=== PATIENT | male | born 1940 | race Caucasian/White ===

== ENCOUNTER 2016-11-25 11:15 | Inpatient (IN) | payer OTHER ==
[~2016-11-25] VITALS: Ht 172.7 cm; Wt 94.0 kg
[~2016-11-25 11:15] MED LIST: ATOR40TA PO; B-12500T3 PO; CETI10 PO; CODE30TA2 PO; COLA100C PO; GLIP5 PO; LISI-363 PO; METO50TA PO; NORV10TA PO; PANT40IN3 PO; ST JTAB PO; TRAZ50TA4 PO
[2016-11-25 11:17] VITALS: BP 159/78; PULSE 86; RESP 24; TEMP 97.3; O2SAT 97
--- NOTE | 2016-11-25 11:21 | PD ---
Physical Exam Date Seen by Provider: November 25, 2016 Time Seen by Provider: 11:20 Narrative 75 year old male presents to the emergency department for evaluation of worsening shortness of breath over the past 2 months. He reports history of bypass. No known fevers. Patient states he has a pulmonary test ordered, but is unsure what test. Patient reports chest pain with coughing. Vital signs reviewed. Patient seen in triage, awaiting bed placement. Data Data Last Documented VS Vital Signs Date Time Temp Pulse Resp B/P Pulse Ox O2 Delivery O2 Flow Rate FiO2 11/25/16 11:17 97.3 86 24 159/78 97 Room Air [facility] [place] Supervised Visit with YUE: Oksana Kennedy November 25, 2016 11:21
[2016-11-25] MEDS ORDERED: SODIUM CHLORIDE 0.9% FLUSH 10 ML FLUSH IVF PRN (11:30)
[2016-11-25 11:49] VITALS: BP 135/82; PULSE 79; RESP 18; O2SAT 94
[2016-11-25 12:03] LABS: AUTOMATED NEUTROPHIL # 4.2 TH/MM3 (1.8-7.7); BASOPHIL % 0.9 % (0.0-2.0); EOSINOPHIL % 0.8 % (0.0-4.0); HEMATOCRIT 47.4 % (39.0-51.0); HEMO FLAGS DIFF FINAL; LYMPH % 11.3 % (9.0-44.0); LYMPHOCYTE # 0.6 TH/MM3 (1.0-4.8); MEAN CELL VOLUME 87.1 FL (80.0-100.0); MEAN CORPUSCULAR HEMOGLOBIN 29.3 PG (27.0-34.0); MEAN CORPUSCULAR HGB CONC 33.7 % (32.0-36.0); MONO % 10.8 % (0.0-8.0); NEUT % 76.2 % (16.0-70.0); PLATELET COUNT 177 TH/MM3 (150-450); RED BLOOD COUNT 5.44 MIL/MM3 (4.50-5.90); RED CELL DISTRIBUTION WIDTH 14.3 % (11.6-17.2); WHITE BLOOD COUNT 5.5 TH/MM3 (4.0-11.0)
[2016-11-25 12:05] LABS: APTT (PATIENT) 29.6 SEC (24.3-30.1)
--- NOTE | 2016-11-25 12:06 | RADRPT ---
EXAM DATE/TIME: 11/25/2016 11:38 [place] COMPARISON: No previous studies available for comparison. INDICATIONS : Cough and Shortness of Breath MEDICAL HISTORY : Chronic obstructive pulmonary disease. Cardiovascular disease. SURGICAL HISTORY : CABG. ENCOUNTER: Initial ACUITY: 3 days PAIN SCORE: 0/10 LOCATION: Bilateral chest FINDINGS: PA and lateral views of the chest demonstrate the lungs to be symmetrically aerated without evidence of mass, infiltrate or effusion. The cardiomediastinal contours are unremarkable. Osseous structure s are intact. The patient is status post median sternotomy for bypass grafting procedure. Mild athero sclerotic calcifications are present in the aorta. There is mild scarring and/or atelectasis at the l junior bases. CONCLUSION: Mild scarring and/or atelectasis at the lung bases. There is no evidence of pneumonia . Wilton Huerta MD on November 25, 2016 at 12:04 Board Certified Radiologist. This report was verified electronically.
[2016-11-25] MEDS ORDERED: LISI40TA PO (12:11)
[2016-11-25] MEDS ORDERED: ASPI1TAB69 PO (12:11)
[2016-11-25] MEDS ORDERED: D 101000 (12:11)
[2016-11-25] MEDS ORDERED: DOCU100C PO (12:11)
[2016-11-25] MEDS ORDERED: ATOR40TA16 PO (12:11)
[2016-11-25] MEDS ORDERED: GLIP5TAB8 PO (12:11)
[2016-11-25] MEDS ORDERED: [UNRECOGNIZED DRUG - CODE] (12:11)
[2016-11-25] MEDS ORDERED: DIAZ5TAB PO (12:11)
[2016-11-25] MEDS ORDERED: AMLO10TA2 PO (12:11)
[2016-11-25] MEDS ORDERED: VIAG100T PO (12:11)
[2016-11-25] MEDS ORDERED: CYAN100025 SL (12:11)
[2016-11-25 12:12] LABS: ANION GAP 9 MEQ/L (5-15); BICARBONATE 27.6 MEQ/L (21.0-32.0); BLOOD UREA NITROGEN 15 MG/DL (7-18); CHLORIDE 100 MEQ/L (98-107); GLOMERULAR FILTRATION RATE 52 ML/MIN (>89); MAGNESIUM 2.1 MG/DL (1.5-2.5); SODIUM (NA) 137 MEQ/L (136-145)
[2016-11-25 12:15] LABS: CREATINE KINASE 102 U/L (39-308)
[2016-11-25 12:27] LABS: CKMB 1.2 NG/ML (0.5-3.6)
[2016-11-25] MEDS ORDERED: ASPIRIN 81 MG CHEW TAB CHEW ONE (12:45)
--- NOTE | 2016-11-25 13:02 | PD ---
HPI Chief Complaint: Respiratory Symptoms Time Seen by Provider: 11:49 Travel History International Travel<30 days: No Contact w/Intl Traveler<30days: No Traveled to known affect area: No History of Present Illness HPI Patient 75-year-old male presents with acute on chronic shortness of breath. Patient states his been short of breath for approximately a month but got fairly worse over the past 4 days. He doesn't endorse a nonproductive cough. He states as though he feels like his lungs are filling up with fluid but states this never happened to him before. Denies any chest pain but states he does have a strange sensation in his chest from time to time. Cannot determine any alleviating or exacerbating factors. He states his symptoms become more severe. Denies any fever. PFSH Past Medical History Arthritis: No Asthma: No Atrial Fibrillation: Yes Autoimmune Disease: No Blood Disorders: No Anxiety: Yes Depression: No Heart Rhythm Problems: Yes Cancer: No Cardiac Catheterization: Yes Cardiovascular Problems: Yes (COSTOCHONDRITIS) High Cholesterol: Yes Chemotherapy: No Chest Pain: Yes Congestive Heart Failure: No COPD: Yes Coronary Artery Disease: Yes Diabetes: Yes Patient Takes Glucophage: No Diminished Hearing: No Diverticulitis: Yes (DIVERTICULOSIS) Endocrine: No Gastrointestinal Disorders: No GERD: Yes Glaucoma: No Genitourinary: Yes (INSUFF RENAL OUTPUT, BPH, CKD STAGE II) Headaches: Yes Hepatitis: No Hiatal Hernia: No Hypertension: Yes Immune Disorder: No Kidney Stones: No Musculoskeletal: No Neurologic: Yes Psychiatric: No Reproductive: No Respiratory: Yes Migraines: No Myocardial Infarction: Yes Radiation Therapy: No Renal Failure: No Seizures: No Sickle Cell Disease: No Sleep Apnea: No Thyroid Disease: No Ulcer: No Past Surgical History Abdominal Surgery: No AICD: No Appendectomy: No Arteriovenous Shunt: No Cardiac Surgery: Yes (CABG) Cholecystectomy: No Coronary Artery Bypass Graft: Yes (TRIPLE) Ear Surgery: No Endocrine Surgery: No Eye Surgery: No Genitourinary Surgery: No Gynecologic Surgery: No Insulin Pump: No Joint Replacement: No Neurologic Surgery: No Oral Surgery: No Pacemaker: No Thoracic Surgery: No Other Surgery: Yes Social History Alcohol Use: No Tobacco Use: No Substance Use: No Allergies-Medications (Allergen,Severity, Reaction): Coded Allergies: Latex (Verified Allergy, Severe, Itching, 11/25/16) Reported Meds & Prescriptions Reported Meds & Active Scripts Active Reported Lisinopril 40 Mg Tab 40 Mg PO DAILY B-12 (Cyanocobalamin) 1,000 Mcg Subl 1,000 Mcg SL DAILY Aspirin 81 Mg Tabdr 81 Mg PO DAILY Viagra (Sildenafil Citrate) 100 Mg Tab 100 Mg PO DAILY PRN Glipizide 5 Mg Tab 5 Mg PO BIDAC Take 30 minutes before a meal Docusate Sodium 100 Mg Cap 2,100 Mg PO BID Diazepam 5 Mg Tab 5 Mg PO HS PRN D 1000 (Cholecalciferol) 1,000 Unit Cap Cvs Anti-Itch 0.5-0.5 % (Camphor & Menthol) 1 Lot Lot Atorvastatin (Atorvastatin Calcium) 40 Mg Tab 40 Mg PO HS Amlodipine (Amlodipine Besylate) 10 Mg Tab 10 Mg PO DAILY Review of Systems Except as stated in HPI: all other systems reviewed are Neg Physical Exam Narrative GENERAL: Well-developed well-nourished no apparent distress SKIN: Focused skin assessment warm/dry. HEAD: Atraumatic. Normocephalic. EYES: Pupils equal and round. No scleral icterus. No injection or drainage. ENT: No nasal bleeding or discharge. Mucous membranes pink and moist. NECK: Trachea midline. No JVD. CARDIOVASCULAR: Regular rate and rhythm. No murmur appreciated. RESPIRATORY: No accessory muscle use. Clear to auscultation. Very fine rales heard in the right base greater than the left base. GASTROINTESTINAL: Abdomen soft, non-tender, nondistended. Hepatic and splenic margins not palpable. MUSCULOSKELETAL: No obvious deformities. No clubbing. No cyanosis. No edema. NEUROLOGICAL: Awake and alert. No obvious cranial nerve deficits. Motor grossly within normal limits. Normal speech. PSYCHIATRIC: Appropriate mood and affect; insight and judgment normal. Data Data Last Documented VS Vital Signs Date Time Temp Pulse Resp B/P Pulse Ox O2 Delivery O2 Flow Rate FiO2 11/25/16 11:49 79 18 135/82 94 Room Air 11/25/16 11:17 97.3 Orders Complete Blood Count With Diff (11/25/16 11:22) Basic Metabolic Panel (Bmp) (11/25/16 11:22) B-Type Natriuretic Peptide (11/25/16 11:22) Act Partial Throm Time (Ptt) (11/25/16 11:22) Prothrombin Time / Inr (Pt) (11/25/16 11:22) Magnesium (Mg) (11/25/16 11:22) Ckmb (Isoenzyme) Profile (11/25/16 11:22) Troponin I (11/25/16 11:22) Iv Access Insert/Monitor (11/25/16 11:22) Electrocardiogram (11/25/16 11:22) Ecg Monitoring (11/25/16 11:22) Oximetry (11/25/16 11:22) Oxygen Administration (11/25/16 11:22) Chest, Pa & Lat (11/25/16 11:22) Sodium Chloride 0.9% Flush (Ns Flush) (11/25/16 11:30) CKMB (11/25/16 11:35) CKMB% (11/25/16 11:35) Aspirin Chew (Aspirin Chew) (11/25/16 12:45) Admit Order (Ed Use Only) (11/25/16 ) Labs Laboratory Tests Test 11/25/16 11:35 White Blood Count 5.5 TH/MM3 Red Blood Count 5.44 MIL/MM3 Hemoglobin 16.0 GM/DL Hematocrit 47.4 % Mean Corpuscular Volume 87.1 FL Mean Corpuscular Hemoglobin 29.3 PG Mean Corpuscular Hemoglobin 33.7 % Concent Red Cell Distribution Width 14.3 % Platelet Count 177 TH/MM3 Mean Platelet Volume 8.2 FL Neutrophils (%) (Auto) 76.2 % Lymphocytes (%) (Auto) 11.3 % Monocytes (%) (Auto) 10.8 % Eosinophils (%) (Auto) 0.8 % Basophils (%) (Auto) 0.9 % Neutrophils # (Auto) 4.2 TH/MM3 Lymphocytes # (Auto) 0.6 TH/MM3 Monocytes # (Auto) 0.6 TH/MM3 Eosinophils # (Auto) 0.0 TH/MM3 Basophils # (Auto) 0.0 TH/MM3 CBC Comment DIFF FINAL Differential Comment Prothrombin Time 11.0 SEC Prothromb Time International 1.0 RATIO Ratio Activated Partial 29.6 SEC Thromboplast Time Sodium Level 137 MEQ/L Potassium Level 4.0 MEQ/L Chloride Level 100 MEQ/L Carbon Dioxide Level 27.6 MEQ/L Anion Gap 9 MEQ/L Blood Urea Nitrogen 15 MG/DL Creatinine 1.34 MG/DL Estimat Glomerular Filtration 52 ML/MIN Rate Random Glucose 184 MG/DL Calcium Level 9.1 MG/DL Magnesium Level 2.1 MG/DL Total Creatine Kinase 102 U/L Creatine Kinase MB 1.2 NG/ML Troponin I 0.07 NG/ML B-Type Natriuretic Peptide 61 PG/ML MDM Medical Decision Making Medical Screen Exam Complete: Yes Emergency Medical Condition: Yes Interpretation(s) EKG shows atrial fibrillation, normal axis normal R-wave progression. No concerning ST T changes. Abnormal EKG. Differential Diagnosis ACS, AMI, CHF, atrial fibrillation. Narrative Course Patient was roomed in the emergency department, his complaint of fluid on the lungs is the chief complaint. Chest x-ray does not show any pulmonary edema or pleural effusion. He appears in no obvious short of breath with some mild URI symptoms. He had very vague chest discomfort symptoms. His troponin is elevated to 0.07 and a critical value. He was given aspirin. No true indication for heparinization at this time. Patient appears comfortable. Vital signs are within normal limits. Discussed with the residents on-call for admission to Dr. Otero and they're agreeable. Patient's results were discussed with him and he also agrees with admission. Diagnosis Primary Impression: Elevated troponin Additional Impression: Chronic atrial fibrillation Admitting Information Admitting Physician Requests: Observation Condition: Stable Devyn Alvarez MD November 25, 2016 13:02
--- NOTE | 2016-11-25 13:03 | HHI.HP ---
[facility] Service Family Medicine Primary Care Physician [facility] Admission Diagnosis Diagnoses: International Travel<30 Days: No Contact w/Intl Traveler<30days: No Known Affected Area: No History of Present Illness 75-year-old male with history of chronic atrial fibrillation which he chooses not to undergo anticoagulation. Also likely history of COPD. Over the last 2- 3 months patient states he has been becoming more short of breath. Patient describes this as "heavy breathing". However, over the last 2-3 days he has been having an increasing hacking cough which she cannot seem to get rid of. He states at the [facility], I have arranged a pulmonary visit and he is planning to undergo PFTs. However he has not had that workup as of yet. He denies fever or chills. He states his cough is worse when moving around. He does lay flat on his stomach to sleep at night. He has tried an inhaler from the [facility] without any symptom relief. He also has been having chest pain. This chest pain has been ongoing since his CABG in 2005. It is in the middle of his chest, 2 out of 10, dull. He is unable to describe how long it lasts. No radiation. Patient did go to the [facility] today to swim. He has been swimming 3 days a week and continues that regimen. He swim for 35 minutes this morning. He states, he likely had made his mind up to come to the ER prior to swimming. However, after swimming he realized he was more short of breath than before and decided to come in. He does have a history of atrial fibrillation. He has considered anticoagulation with Coumadin in the past and does not want to be on Coumadin. However, he may be interested in other anticoagulation options. These have not been discussed with him at [facility]. Review of Systems Constitutional: DENIES: Fever, Chills Eyes: DENIES: Blurred vision, Diplopia Respiratory: COMPLAINS OF: Cough, Shortness of breath, DENIES: Sputum production Cardiovascular: COMPLAINS OF: Chest pain, DENIES: Syncope Gastrointestinal: DENIES: Black stools, Bloody stools, Constipation, Diarrhea, Nausea, Vomiting Neurologic: DENIES: Abnormal gait, Headache Psychiatric: DENIES: Anxiety, Confusion Past Family Social History Past Medical History AFib CAD s/p Bypass Graft 2006 Hyperlipidemia Diabetes II?- 1/2 glipizide in morning, and half in evening HTN GERD Past Surgical History CABG 2005 Reported Medications Reported Meds & Active Scripts Active Reported D 1000 (Cholecalciferol) 1,000 Unit Cap Cvs Anti-Itch 0.5-0.5 % (Camphor & Menthol) 1 Lot Lot Atorvastatin (Atorvastatin Calcium) 40 Mg Tab 40 Mg PO HS Amlodipine (Amlodipine Besylate) 10 Mg Tab 10 Mg PO DAILY Allergies: Coded Allergies: Latex (Verified Allergy, Severe, Itching, 11/25/16) Active Ordered Medications Active Medications Acetaminophen (Tylenol) 650 mg Q4H PRN PO; Start 11/25/16 at 13:45 Amlodipine Besylate (Norvasc) 10 mg DAILY PO; Start 11/26/16 at 09:00; Status UNV Aspirin (Aspirin Chew) 324 mg ONCE ONCE CHEW; Start 11/25/16 at 12:45; Stop 11/25 at 12:46; Status DC Aspirin (Ecotrin Ec) 81 mg DAILY PO; Start 11/26/16 at 09:00; Status UNV Atorvastatin Calcium (Lipitor) 40 mg HS PO; Start 11/25/16 at 21:00; Status UNV Azithromycin (Zithromax) 500 mg Q24H PO; Start 11/25/16 at 13:45; Stop 11/30/16 at 13:44; Status UNV Diazepam (Valium) 5 mg HS PRN PO; Start 11/25/16 at 13:45; Status UNV Docusate Sodium (Colace) 2,100 mg BID PO; Start 11/25/16 at 21:00; Status UNV Heparin Sodium (Porcine) (Heparin Inj) 5,000 units Q12H SQ; Start 11/25/16 at 13: 45; Status UNV Lorazepam (Ativan) 1 mg ONCE ONCE PO; Start 11/25/16 at 13:30; Stop 11/25/16 at 13:31; Status DC Magnesium Hydroxide (Milk Of Magnesia Liq) 30 ml Q12H PRN PO; Start 11/25/16 at 13:45 Naloxone HCl (Narcan Inj) 0.4 mg UNSCH PRN IV; Start 11/25/16 at 13:45 Non-Formulary Medication 40 mg DAILY PO; Start 11/26/16 at 09:00; Status UNV Ondansetron HCl (Zofran Inj) 4 mg Q6H PRN IVP; Start 11/25/16 at 13:45 Prednisone (Deltasone) 40 mg DAILY PO; Start 11/25/16 at 13:45; Status UNV Sodium Chloride (NS Flush) 2 ml BID IV FLUSH; Start 11/25/16 at 21:00 Sodium Chloride (NS Flush) 2 ml UNSCH PRN IV FLUSH; Start 11/25/16 at 13:45 Sodium Chloride (NS Flush) 2 ml UNSCH PRN IVF Last administered on 11/25/16t 12: 11; Admin Dose 2 ML; Start 11/25/16 at 11:30 Family History Mother - liver cancer Father - , unknown medical conditions. Social History Lives alone. Retired ETOH: very rarely Tobacco: Started in high school; smoked until 2005; 1 ppd Drugs: Denies Physical Exam Vital Signs Vital Signs Date Time Temp Pulse Resp B/P Pulse Ox O2 Delivery O2 Flow Rate FiO2 11/25/16 11:49 79 18 135/82 94 Room Air 11/25/16 11:49 97 Room Air 11/25/16 11:49 97 Room Air 11/25/16 11:17 97.3 86 24 159/78 97 Room Air Physical Exam GENERAL: This is a well-nourished, well-developed patient, in no apparent distress. Sitting upright in bed. SKIN: No rashes, ecchymoses or lesions. Cool and dry. HEAD: Atraumatic. Normocephalic. No temporal or scalp tenderness. EYES: Pupils equal round and reactive. Extraocular motions intact. No scleral icterus. No injection or drainage. ENT: Nose without bleeding, purulent drainage or septal hematoma. Throat without erythema, tonsillar hypertrophy or exudate. Uvula midline. Airway patent. NECK: Trachea midline. No JVD or lymphadenopathy. Supple, nontender, no meningeal signs. CARDIOVASCULAR: Irregular rate and rhythm without murmurs, gallops, or rubs. RESPIRATORY: Bilateral coarse breath sounds, worse at the bases and on the left side. GASTROINTESTINAL: Abdomen soft, non-tender, nondistended. No hepato-splenomegaly , or palpable masses. No guarding. MUSCULOSKELETAL: Extremities without clubbing, cyanosis, or edema. No joint tenderness, effusion, or edema noted. No calf tenderness. Negative Homans sign bilaterally. NEUROLOGICAL: Awake and alert. Cranial nerves II through XII intact. Motor and sensory grossly within normal limits. Five out of 5 muscle strength in all muscle groups. Normal speech. Laboratory Laboratory Tests Test 11/25/16 11:35 White Blood Count 5.5 Red Blood Count 5.44 Hemoglobin 16.0 Hematocrit 47.4 Mean Corpuscular Volume 87.1 Mean Corpuscular Hemoglobin 29.3 Mean Corpuscular Hemoglobin 33.7 Concent Red Cell Distribution Width 14.3 Platelet Count 177 Mean Platelet Volume 8.2 Neutrophils (%) (Auto) 76.2 Lymphocytes (%) (Auto) 11.3 Monocytes (%) (Auto) 10.8 Eosinophils (%) (Auto) 0.8 Basophils (%) (Auto) 0.9 Neutrophils # (Auto) 4.2 Lymphocytes # (Auto) 0.6 Monocytes # (Auto) 0.6 Eosinophils # (Auto) 0.0 Basophils # (Auto) 0.0 CBC Comment DIFF FINAL Differential Comment Prothrombin Time 11.0 Prothromb Time International 1.0 Ratio Activated Partial 29.6 Thromboplast Time Sodium Level 137 Potassium Level 4.0 Chloride Level 100 Carbon Dioxide Level 27.6 Anion Gap 9 Blood Urea Nitrogen 15 Creatinine 1.34 Estimat Glomerular Filtration 52 Rate Random Glucose 184 Calcium Level 9.1 Magnesium Level 2.1 Total Creatine Kinase 102 Creatine Kinase MB 1.2 Troponin I 0.07 B-Type Natriuretic Peptide 61 Result Diagram: 11/25/16 1135 11/25/16 1135 Imaging Last Impressions Chest X-Ray 11/25/16 1122 Signed Impressions: Service Date/Time: Friday, November 25, 2016 11:38 - CONCLUSION: Mild scarring and/or atelectasis at the lung bases. There is no evidence of pneumonia. Wilton Huerta MD Assessment and Plan Assessment and Plan 75-year-old male, likely with a history of COPD, presents with a new cough and shortness of breath. He has a history of CABG, atrial fibrillation and chest pain and was found to have elevated troponins. Plan as below. Code Status Full Problem List: (1) COPD exacerbation Status: Acute Plan: Chest x-ray shows mild scarring and or atelectasis at the bases. Long-time history of smoking. Albuterol when necessary shortness of breath DuoNeb scheduled Prednisone 40 mg by mouth daily Azithromycin 500 mg by mouth for 5 days Oxygen as needed sats greater than 92% Incentive spirometer (2) Elevated troponin Status: Acute Plan: Troponin mildly elevated at 0.07 Cardiology consult Trend troponins every 6 hours (1800 and 0000) EKGs every 6 hours (3) Chronic atrial fibrillation Status: Acute Plan: Patient is rate controlled Has previously refused anticoagulation, but new agents have not been explained to him Cardiology consult (4) FEN/PPX Status: Acute Plan: Fluids: Tolerating By mouth Electrolytes: Monitor and replace when necessary Nutrition: Heart healthy diet Prophylaxis: Heparin 5000 units every 12 hours GI prophylaxis: Protonix while on steroids Chronic medical problems: CAD: Continue aspirin, atorvastatin Anxiety: Continue diazepam 5 mg when necessary anxiety Diabetes: Hold home glipizide. Sliding scale insulin while inpatient. Hypertension: Continue amlodipine, lisinopril Physician Certification 2 Midnight Certification Type: Admission for Inpatient Services Order for Inpatient Services The services are ordered in accordance with Medicare regulations or non- Medicare payer requirements, as applicable. In the case of services not specified as inpatient-only, they are appropriately provided as inpatient services in accordance with the 2-midnight benchmark. Estimated LOS (days): 2 days is the estimated time the patient will need to remain in the hospital, assuming treatment plan goals are met and no additional complications. Post-Hospital Plan: Home Ralph Marks MD R2 November 25, 2016 13:03
[2016-11-25] MEDS ORDERED: LORazepam 1 MG TAB PO ONE (13:30)
[2016-11-25] MEDS ORDERED: SODIUM CHLORIDE 0.9% FLUSH 10 ML FLUSH IV FLUSH PRN (13:45)
[2016-11-25] MEDS ORDERED: RESP: ALBUTEROL 2.5 MG/3 ML NEB (PRN) INH (13:45)
[2016-11-25] MEDS ORDERED: ONDANSETRON HCL 4 MG/2 ML VIAL IVP PRN (13:45)
[2016-11-25] MEDS ORDERED: MAGNESIUM HYDROXIDE SUSP 30 ML CUP PO PRN (13:45)
[2016-11-25] MEDS ORDERED: ACETAMINOPHEN 325 MG TAB PO PRN (13:45)
[2016-11-25] MEDS ORDERED: DIAZEPAM 5 MG TAB PO PRN (13:45)
[2016-11-25] MEDS ORDERED: NALOXONE HCL 0.4 MG/ML AMP IV PRN (13:45)
[2016-11-25] MEDS ORDERED: hydrALAZINE HCL 10 MG TAB PO PRN (13:45)
[2016-11-25] MEDS: HEPARIN SODIUM - SQ 10,000 UNITS/ML VIAL SQ SCH (14:10)
[2016-11-25] MEDS: predniSONE 20 MG TAB PO SCH (14:11)
[2016-11-25] MEDS: AZITHROMYCIN 250 MG TAB PO SCH (14:11)
[2016-11-25] MEDS ORDERED: DEXTROSE 50% IN WATER 50 ML VIAL(D50) IV PUSH PRN (14:15)
[2016-11-25] MEDS ORDERED: GLUCAGON 1 MG/ML VIAL OTHER PRN (14:15)
[2016-11-25] MEDS: PANTOPRAZOLE SOD 40 MG DELAYED RELEASE TAB PO SCH (15:54)
[2016-11-25 15:57] VITALS: BP 128/66; PULSE 73; RESP 20; TEMP 97.6; O2SAT 96
[2016-11-25] MEDS: RESP: ALBUTEROL 2.5 MG/IPRATROPIUM 0.5 MG NEB (SCH) INH ×2 (16:10→19:38)
[2016-11-25] MEDS: INSULIN NovoLIN REGULAR SUPPLEMENTAL SCALE SQ SCH ×2 (16:39→21:29)
--- NOTE | 2016-11-25 17:14 | MB ---
cc: SLOANE REYNOLDS M.D. DATE OF CONSULTATION: 11/25/2016 REASON FOR CONSULTATION Shortness of breath, atrial fibrillation. HISTORY OF PRESENT ILLNESS Mr. Vidal is a 75-year-old gentleman with a history of obesity, high blood pressure, hyperlipidemia, diabetes mellitus. The gentleman swims at least four times a week. He went to swim at the [facility] this morning at 7:00 a.m. His shortness of breath getting worse. He decided to come to the emergency room. He is followed by the [facility]. He has a history of coronary artery bypass grafting in 2005. The chart was reviewed. The patient was evaluated. ALLERGIES LATEX. SOCIAL HISTORY The gentleman stopped smoking in 2005. Denies drinking. FAMILY HISTORY Noncontributory to his current medical condition. MEDICATIONS 1. Amlodipine 10 mg a day. 2. Aspirin. 3. Lipitor 40 mg a day. 4. Zithromax. 5. Ativan. 6. Prednisone. REVIEW OF SYSTEMS Currently he refer some shortness of breath but no chest pain, no chest discomfort, no palpitation, no fever. PHYSICAL EXAMINATION GENERAL: Alert, fully oriented. VITAL SIGNS: His blood pressure 122/86, pulse 73, respiratory rate 20-22. LUNGS: Ventilated. Some minimal wheezing. CARDIOVASCULAR: S1, S2 irregular. ABDOMEN: Soft, obese. No mass. No bruit. EXTREMITIES: No edema. Electrocardiogram atrial fibrillation, diffuse ST changes. LABORATORY DATA Hemoglobin is 16, white blood cell 5.5, potassium 4.0, creatinine is 1.34, troponin 0.07. INR 1.0. ASSESSMENT AND RECOMMENDATIONS Mr. Vidal has possible COPD, also maybe heart failure. Ejection fraction is unknown. He has a history of TIA in 2012. Never followed with a account liaison since his bypass. He will need to be evaluated by Pulmonary. Also, he will need an echocardiogram to evaluate wall motion and valvular function. If stable before discharge, nuclear stress study will be requested. He has atrial fibrillation, his heart rate is controlled, he has a history of TIA, CABG. His CHADS-VASc is around 6. The gentleman is very high risk for ischemic stroke. I had a long conversation with him. He says he knows about the stroke, he refused to take anticoagulation because he feels like he is older. I explained to him it is patients like him that need anticoagulation. He will think about it and will make a decision tomorrow during the visit. Blood pressure is adequate. For now he will continue on current medication. Pulmonary evaluation is necessary also. MD IVA Peterson/BJF /4:37 PM /4:47 PM
[2016-11-25 19:57] VITALS: BP 139/73; PULSE 91; RESP 19; TEMP 98.2; O2SAT 94
[2016-11-25 20:00] VITALS: PULSE 93
[2016-11-25] MEDS: DOCUSATE SODIUM 100 MG CAP PO SCH (21:26)
[2016-11-25] MEDS: SODIUM CHLORIDE 0.9% FLUSH 10 ML FLUSH IV FLUSH SCH (21:26)
[2016-11-25] MEDS: ATORVASTATIN 40 MG TAB PO SCH (21:26)
--- NOTE | 2016-11-25 21:36 | EKG ---
Date Performed: 11/25/2016 Time Performed: 18:07:33 PTAGE: 75 years EKG: ATRIAL FIBRILLATION ABNORMAL RHYTHM ECG PREVIOUS TRACING : 11/25/2016 11.29 DOCTOR: Jessica Arauz Interpretating Date/Time 11/25/2016 21:35:22
--- NOTE | 2016-11-25 21:51 | EKG ---
Date Performed: 11/25/2016 Time Performed: 11:29:58 PTAGE: 75 years EKG: ATRIAL FIBRILLATION NONSPECIFIC T-WAVE ABNORMALITY ABNORMAL ECG INTERPRETATION BASED ON A D EFAULT AGE OF 41 YEARS PREVIOUS TRACING : 05/09/2013 13.02 DOCTOR: Jessica Arauz Interpretating Date/Time 11/25/2016 21:47:59
[2016-11-25 23:48] VITALS: BP 124/65; PULSE 84; RESP 20; TEMP 98; O2SAT 95
[2016-11-26] VITALS (15 sets, daily range): BP systolic 129–170; BP diastolic 77–89; PULSE 71–114; RESP 18–20; TEMP 97.6–98.4; O2SAT 92–96
[2016-11-26] MEDS: RESP: ALBUTEROL 2.5 MG/IPRATROPIUM 0.5 MG NEB (SCH) INH ×4 (02:44→20:59)
[2016-11-26] MEDS ORDERED: BENZONATATE 100 MG CAP PO ONE (03:00)
[2016-11-26] MEDS: HEPARIN SODIUM - SQ 10,000 UNITS/ML VIAL SQ SCH ×2 (03:23→16:15)
[2016-11-26] MEDS ORDERED: LORazepam 2 MG/ML VIAL IV ONE (05:00)
[2016-11-26 05:56] LABS: AUTOMATED NEUTROPHIL # 3.8 TH/MM3 (1.8-7.7); BASOPHIL % 0.3 % (0.0-2.0); HEMATOCRIT 45.7 % (39.0-51.0); HEMO FLAGS DIFF FINAL; LYMPHOCYTE # 0.5 TH/MM3 (1.0-4.8); MEAN CELL VOLUME 86.8 FL (80.0-100.0); MEAN CORPUSCULAR HEMOGLOBIN 29.7 PG (27.0-34.0); MEAN CORPUSCULAR HGB CONC 34.2 % (32.0-36.0); NEUT % 79.7 % (16.0-70.0); PLATELET COUNT 176 TH/MM3 (150-450); RED BLOOD COUNT 5.27 MIL/MM3 (4.50-5.90); RED CELL DISTRIBUTION WIDTH 14.1 % (11.6-17.2); WHITE BLOOD COUNT 4.8 TH/MM3 (4.0-11.0)
[2016-11-26 06:11] LABS: ALT (GPT) 25 U/L (12-78); ANION GAP 10 MEQ/L (5-15); AST (GOT) 14 U/L (15-37); BICARBONATE 23.6 MEQ/L (21.0-32.0); BLOOD UREA NITROGEN 17 MG/DL (7-18); CHLORIDE 102 MEQ/L (98-107); GLOMERULAR FILTRATION RATE 62 ML/MIN (>89); POTASSIUM 4.2 MEQ/L (3.5-5.1); SODIUM (NA) 136 MEQ/L (136-145)
[2016-11-26 06:14] LABS: ALKALINE PHOSPHATASE 78 U/L (45-117); TOTAL BILIRUBIN ADULT 0.7 MG/DL (0.2-1.0)
[2016-11-26] MEDS: INSULIN NovoLIN REGULAR SUPPLEMENTAL SCALE SQ SCH ×4 (07:00→20:58)
--- NOTE | 2016-11-26 07:55 | HHI.FPPN ---
Subjective Remarks Pt seen and examined this morning. Pt reports he was coughing all night and his throat is burning. Cough is nonproductive. Pt endorsing dyspnea especially with minimal exertion like getting up to use the restroom. He reports pressure in his chest but also states his whole chest is sore from coughing. Feels like his symptoms have worsened. Denies N/V, diarrhea, LE edema, fever, or chills. Denies sick contacts. (Alesia Dahl MD) Objective Vitals Vital Signs Date Time Temp Pulse Resp B/P Pulse Ox O2 Delivery O2 Flow Rate FiO2 11/26/16 04:00 101 11/25/16 23:48 98.0 84 20 124/65 95 11/25/16 20:00 93 11/25/16 19:57 98.2 91 19 139/73 94 11/25/16 16:09 97 Nasal Cannula 2 11/25/16 15:57 97.6 73 20 128/66 96 11/25/16 11:49 79 18 135/82 94 Room Air 11/25/16 11:49 97 Room Air 11/25/16 11:49 97 Room Air 11/25/16 11:17 97.3 86 24 159/78 97 Room Air (Alesia Dahl MD) Result Diagram: 11/26/16 0511 11/26/16 0511 Imaging Chest X-Ray 11/25/16 1122 Signed Impressions: Service Date/Time: Friday, November 25, 2016 11:38 - CONCLUSION: Mild scarring and/or atelectasis at the lung bases. There is no evidence of pneumonia. Wilton Huerta MD Objective Remarks GENERAL: WN, WD male appearing a little restless. SKIN: Warm and dry. HEENT: Pupils equal and round. No nasal drainage. MMM. HEART: RRR no m/r/g. LUNGS: Good air entry but diffuse coarse breath sounds. Speaking in complete sentences. ABDOMEN: Soft, NT, ND. No guarding or rebound. EXTREMITIES: No LE edema. No calf tenderness. NEURO: Awake and alert. (Alesia Dahl MD) A/P Assessment and Plan 75-year-old male with CAD, HTN, DM, and atrial fibrillation admitted for chest pain and shortness of breath found to have a mildly elevated troponin. Cardiology was consulted and troponins trended overnight. Patient to possibly undergo further cardiac evaluation likely with nuclear stress test. Pulmonology also consulted to evaluate respiratory symptoms. Discharge Planning Unclear discharge as further cardiac and pulmonary work-up pending. (Alesia Dahl MD) Attending Attestation Patient seen and examined. Case reviewed and discussed with the resident team. Agree with plan of care as discussed with me and documented in the resident note (Sabas Otero MD) Problem List: (1) COPD exacerbation Status: Acute Plan: Patient with longstanding history of tobacco abuse, quit in 2005 after CABG. He has no formal diagnosis of COPD and has never undergone PFTs. CXR on admission showed mild scarring and or atelectasis at the bases. He is maintaining adequate oxygenation on room air. Given increased shortness of breath, cough, and tobacco history, will treat for suspected COPD exacerbation with prednisone 40 mg PO daily and Azithromycin 500 mg PO daily (x 5 days). He would benefit from PFTs as an outpatient once acute symptoms improve. - Supplemental O2 PRN - DuoNeb Q6H - Albuterol nebs Q2H PRN - Mucinex BID - Tessalon PRN cough - Incentive spirometer - Pulm consulted for further evaluation (2) Elevated troponin Status: Acute Plan: Patient presenting with anterior chest pain and mildly elevated troponin of 0.07. Initial EKG showing atrial fibrillation. Risk factors for ACS: CAD w/ CABG, HTN, DM, h/o tobacco abuse. Serial troponins trended overnight and increased slightly to 0.28 and 0.21 with no significant changes on EKG. - Cardiology consulted and will likely perform nuclear stress test - 2D echo ordered - Continue ASA (3) Chronic atrial fibrillation Status: Acute Plan: Rate-controlled without use of home BB or CCB. CHADSVASc score of 6 warranting anticoagulation but patient hesitant. Cardiology to further discuss today. (4) FEN/PPX Status: Acute Plan: - Fluids: Currently NPO for possible stress test - Electrolytes: WNL. Monitor and replete PRN - Nutrition: NPO - DVT prophylaxis: Heparin 5000 units SQ Q12H - GI prophylaxis: Protonix while on steroids Chronic medical problems: - CAD: Continue home ASA and atorvastatin - Anxiety: Continue home diazepam 5 mg PRN - DM: Hold home glipizide. SSI per protocol - HTN: Continue home amlodipine and lisinopril sdw Dr. Otero, Dr. Marks, and Dr. Carlton (Alesia Dahl MD) Alesia Dahl MD November 26, 2016 07:55 Sabas Otero MD November 26, 2016 20:11
[2016-11-26] MEDS: LISINOPRIL 20 MG TAB PO SCH (09:09)
[2016-11-26] MEDS: DOCUSATE SODIUM 100 MG CAP PO SCH ×2 (09:09→20:57)
[2016-11-26] MEDS: guaiFENesin E.R. 600 MG TAB PO SCH ×2 (09:09→20:56)
[2016-11-26] MEDS: BENZONATATE 100 MG CAP PO PRN ×2 (09:09→16:14)
[2016-11-26] MEDS: ASPIRIN EC 81 MG TABEC PO SCH (09:10)
[2016-11-26] MEDS: PANTOPRAZOLE SOD 40 MG DELAYED RELEASE TAB PO SCH (09:10)
[2016-11-26] MEDS: SODIUM CHLORIDE 0.9% FLUSH 10 ML FLUSH IV FLUSH SCH ×2 (09:11→20:59)
[2016-11-26] MEDS ORDERED: LORazepam 2 MG/ML VIAL IV PUSH ONE (09:30)
[2016-11-26] MEDS: predniSONE 20 MG TAB PO SCH (09:51)
--- NOTE | 2016-11-26 10:37 | EKG ---
Date Performed: 11/25/2016 Time Performed: 23:51:54 PTAGE: 75 years EKG: ATRIAL FIBRILLATION NONSPECIFIC T-WAVE ABNORMALITY ABNORMAL ECG PREVIOUS TRACING : 11/25/2016 18.07 DOCTOR: Jessica Arauz Interpretating Date/Time 11/26/2016 10:35:53
[2016-11-26] MEDS ORDERED: LORazepam 2 MG/ML VIAL IV PUSH PRN (12:00)
[2016-11-26] MEDS ORDERED: REGADENOSON INJ 0.4 MG/5 ML SYR ONE (14:38)
--- NOTE | 2016-11-26 16:04 | MB ---
cc: CRAIG SRINIVASAN M.D. REASON FOR CONSULTATION Chronic obstructive pulmonary disease and exacerbation, persistent cough. HISTORY OF THE PRESENT ILLNESS Mr. Vidal is a 75-year-old male who was admitted with increasing shortness of breath. He has a known history of chronic obstructive pulmonary disease as well as history of atrial fibrillation. He denies a history of fever or chills. His main complaint is episodic cough which of course mostly upon deep inspiration and sometimes during the night which is difficult to control. PAST MEDICAL HISTORY Is that of: 1. Chronic obstructive pulmonary disease. 2. Atrial fibrillation. 3. Transient ischemic attack. ALLERGIES LATEX. FAMILY HISTORY Noncontributory. MEDICATIONS At present: 1. Amlodipine. 2. Lipitor. 3. Zithromax. 4. Ativan. 5. Prednisone. 6. Aspirin. REVIEW OF SYSTEMS Systems review, a 12 point review of systems as per the history of present illness and past history, otherwise negative. SOCIAL HISTORY The patient used to smoke, stopped in 2005. Does not drink any alcohol. Does not use drugs. PHYSICAL EXAMINATION GENERAL: The patient is alert. VITAL SIGNS: Temperature 98 degrees Fahrenheit, pulse 90, respiratory rate 18, blood pressure 150/80. HEENT: Unremarkable. Eyes without icterus. NECK: Without adenopathy or thyroid enlargement. Central trachea. CHEST: A few scattered rhonchi at basis. CARDIAC: Point of maximal distant. ABDOMEN: Lax. Bowel sounds audible. EXTREMITIES: No clubbing, cyanosis or edema. SKIN: Normal. No lymphadenopathy. LABORATORY DATA Electrocardiogram with evidence of atrial fibrillation. IMAGING A chest x-ray 11/25/2016 with mild scarring and atelectatic change at the basis otherwise unremarkable. LABORATORY DATA White count 4.8, hemoglobin 15, hematocrit 45, platelets 176,000. INR 1.0. Sodium 136, potassium 4.2, BUN 17, creatinine 1.1. IMPRESSION 1. Chronic obstructive pulmonary disease. 2. Persistent cough due to above. 3. Atrial fibrillation. PLAN The patient will be maintained on bronchodilator therapy. He will need an antitussive to improve his cough, especially when going to sleep at night for comfort. Meanwhile inhaled bronchodilators, steroid therapy as well as antibiotic therapy should be maintained. We will follow his course along with you and depending on progress proceed further. MD DENIS Gonsalez /3:43 PM 3:48 PM
[2016-11-26] MEDS: AZITHROMYCIN 250 MG TAB PO SCH (16:15)
--- NOTE | 2016-11-26 17:06 | HHI.PR ---
Subjective Remarks Alert, fully oriented, ambulating Lungs: ventilated, some wheezing Heart: S1, S2 irregular, no gallop Abdomen: obese, no mass Ext: no edema Last Impressions Chest X-Ray 11/25/16 1122 Signed Impressions: Service Date/Time: Friday, November 25, 2016 11:38 - CONCLUSION: Mild scarring and/or atelectasis at the lung bases. There is no evidence of pneumonia. Wilton Huerta MD Current Medications Medications (Trade) Dose Ordered Sig/Ana Route Start Time Stop Time Status Last Admin (NS Flush) 2 ml UNSCH PRN IV FLUSH 11/25/16 13:45 (NS Flush) 2 ml BID IV FLUSH 11/25/16 21:00 11/26/16 09:11 (Tylenol) 650 mg Q4H PRN PO 11/25/16 13:45 (Zofran Inj) 4 mg Q6H PRN IVP 11/25/16 13:45 (Milk Of Magnesia Liq) 30 ml Q12H PRN PO 11/25/16 13:45 (Heparin Inj) 5,000 units Q12H SQ 11/25/16 14:00 11/26/16 16:15 (Narcan Inj) 0.4 mg UNSCH PRN IV 11/25/16 13:45 (Deltasone) 40 mg DAILY PO 11/25/16 14:00 11/26/16 09:51 (Zithromax) 500 mg Q24H PO 11/25/16 14:00 11/30/16 13:59 11/26/16 16:15 (Norvasc) 10 mg DAILY PO 11/26/16 09:00 11/26/16 09:10 (Ecotrin Ec) 81 mg DAILY PO 11/26/16 09:00 11/26/16 09:10 (Lipitor) 40 mg HS PO 11/25/16 21:00 11/25/16 21:26 (Valium) 5 mg HS PRN PO 11/25/16 13:45 11/26/16 00:14 (Colace) 100 mg BID PO 11/25/16 21:00 11/26/16 09:09 (Prinivil) 40 mg DAILY PO 11/26/16 09:00 11/26/16 09:09 (Apresoline) 10 mg Q6H PRN PO 11/25/16 13:45 (D50w (Vial) Inj) 25 ml UNSCH PRN IV PUSH 11/25/16 14:15 (Glucagon Inj) 1 mg UNSCH PRN OTHER 11/25/16 14:15 (Protonix) 40 mg DAILY PO 11/25/16 15:00 11/26/16 09:10 (Tessalon) 200 mg TID PRN PO 11/26/16 03:00 11/26/16 16:14 (Mucinex Er) 600 mg BID PO 11/26/16 09:00 11/26/16 09:09 (Tussionex Liq) 5 ml Q12HR PO 11/26/16 21:00 Objective Vital Signs Date Time Temp Pulse Resp B/P Pulse Ox O2 Delivery O2 Flow Rate FiO2 11/26/16 16:00 97.6 101 20 170/87 94 11/26/16 16:00 99 11/26/16 14:00 84 11/26/16 13:00 98.3 94 20 156/89 92 11/26/16 13:00 99 11/26/16 09:29 84 11/26/16 09:14 95 21 11/26/16 07:53 98.4 71 18 129/77 96 11/26/16 04:00 101 11/25/16 23:48 98.0 84 20 124/65 95 11/25/16 20:00 93 11/25/16 19:57 98.2 91 19 139/73 94 Result Diagram: 11/26/16 0511 11/26/16 0511 Assessment and Plan Problem List: (1) Chronic atrial fibrillation Status: Acute Plan: HR control. In atrial fibrillation (2) COPD exacerbation Status: Acute Plan: Some wheezing Evaluated by pulmonary (3) Elevated troponin Status: Acute Plan: No chest pain Nuclear stress study done today. Pending result. If stable can be DH Jessica Arauz MD November 26, 2016 17:05
--- NOTE | 2016-11-26 17:08 | RADRPT ---
EXAM DATE/TIME: 11/26/2016 14:26 [facility] COMPARISON: No previous studies available for comparison. INDICATIONS : Dyspnea. Atrial fibrillation. DOSE: 26.4 mCi Tc99m Myoview at stress. 8.3 mCi Tc99m Myoview at rest. 0.4 mg Lexiscan STRESS SYMPTOMS: Dyspnea. EJECTION FRACTION: > 70% MEDICAL HISTORY : Myocardial infarction. Chronic obstructive pulmonary disease. Gastroesophageal reflux disease. Hypert ension. SURGICAL HISTORY : CABG Cardiac [id number]. ENCOUNTER: Initial ACUITY: 3 days PAIN SCALE: 0/10 LOCATION: chest TECHNIQUE: The patient underwent pharmacologic stress with infusion of prescribed dose. Continuous ECG tracing was monitored during stress. Gated SPECT imaging was performed after stress and conventional SPECT i maging was performed at rest. The examination was performed on a SPECT/CT scanner, both attenuation and non-corrected datasets were reviewed. FINDINGS: DISTRIBUTION: The maximum perfused segment at stress is in the anterolateral wall. PERFUSION STUDY: There is a fixed perfusion defect in the inferior wall. GATED STUDY: There is intact wall motion and thickening without hypokinetic or dyskinetic segments. CONCLUSION: 1. Fixed perfusion defect in the inferior wall, best seen on the non-attenuation corrected images. Th is is characteristic of prior myocardial infarction. No significant reversibility identified. 2. Normal wall motion with ejection fraction of greater than 70%. RISK CATEGORY: Intermediate (1-3% Annual Mortality Rate) Kvng Florian MD on November 26, 2016 at 17:02 Board Certified Radiologist. This report was verified electronically.
[2016-11-26] MEDS: CHLORPHENIR/HYDROCOD LIQUID 8 MG/10 MG/5 ML CUP PO SCH (20:57)
[2016-11-26] MEDS: ATORVASTATIN 40 MG TAB PO SCH (20:57)
[2016-11-27] VITALS (18 sets, daily range): BP systolic 91–140; BP diastolic 69–80; PULSE 59–104; RESP 18–20; TEMP 97.8–98.8; O2SAT 91–96
[2016-11-27] MEDS: BENZONATATE 100 MG CAP PO PRN ×2 (01:24→13:42)
[2016-11-27] MEDS: HEPARIN SODIUM - SQ 10,000 UNITS/ML VIAL SQ SCH (01:25)
[2016-11-27] MEDS: RESP: ALBUTEROL 2.5 MG/IPRATROPIUM 0.5 MG NEB (SCH) INH ×3 (04:16→15:43)
[2016-11-27] MEDS: INSULIN NovoLIN REGULAR SUPPLEMENTAL SCALE SQ SCH ×3 (06:37→16:00)
[2016-11-27] MEDS: predniSONE 20 MG TAB PO SCH (08:42)
[2016-11-27] MEDS: CHLORPHENIR/HYDROCOD LIQUID 8 MG/10 MG/5 ML CUP PO SCH (08:43)
[2016-11-27] MEDS: LISINOPRIL 20 MG TAB PO SCH (08:43)
[2016-11-27] MEDS: PANTOPRAZOLE SOD 40 MG DELAYED RELEASE TAB PO SCH (08:43)
[2016-11-27] MEDS: DOCUSATE SODIUM 100 MG CAP PO SCH (08:43)
[2016-11-27] MEDS: ASPIRIN EC 81 MG TABEC PO SCH (08:43)
[2016-11-27] MEDS: SODIUM CHLORIDE 0.9% FLUSH 10 ML FLUSH IV FLUSH SCH (08:43)
[2016-11-27] MEDS: guaiFENesin E.R. 600 MG TAB PO SCH (08:43)
--- NOTE | 2016-11-27 09:28 | HHI.FPPN ---
Subjective Remarks Patient seen and examined this am. Patient with some tachycardia this am, otherwise BP stable and afebrile. S/P nuclear stress test. Denies CP or SOB. Complains of cough that is dry. Eating breakfast. Discussed anticoagulation, risks vs benefits, coumadin vs other agents. Patient has friend on eliquis and wants to know if he can be on that. Objective Vitals Vital Signs Date Time Temp Pulse Resp B/P Pulse Ox O2 Delivery O2 Flow Rate FiO2 11/27/16 07:00 104 11/27/16 06:00 76 11/27/16 05:00 86 11/27/16 04:00 98.3 86 20 136/74 96 11/27/16 04:00 68 11/27/16 03:00 80 11/27/16 02:00 92 11/27/16 01:00 68 11/27/16 00:00 59 11/27/16 00:00 98.1 82 20 138/80 95 11/26/16 23:00 78 11/26/16 22:00 114 11/26/16 21:00 102 11/26/16 20:59 93 21 11/26/16 20:00 83 11/26/16 20:00 98.2 84 20 132/79 95 11/26/16 19:00 86 11/26/16 18:00 100 11/26/16 17:00 107 11/26/16 16:00 97.6 101 20 170/87 94 11/26/16 16:00 99 11/26/16 14:00 84 11/26/16 13:00 98.3 94 20 156/89 92 11/26/16 13:00 99 11/26/16 09:29 84 I/O 11/26/16 11/26/16 11/26/16 11/27/16 11/27/16 11/27/16 07:00 15:00 23:00 07:00 15:00 23:00 Intake Total 240 ml 440 ml Output Total 725 ml Balance 240 ml -285 ml Intake Oral 240 ml 440 ml Output Urine Total 725 ml # Voids 1 Result Diagram: 11/26/16 0511 11/26/16 0511 Imaging Last Impressions Myocardial Perfusion Scan Nuc Med 11/26/16 0000 Signed Impressions: Service Date/Time: Saturday, November 26, 2016 14:26 - CONCLUSION: 1. Fixed perfusion defect in the inferior wall, best seen on the non-attenuation corrected images. This is characteristic of prior myocardial infarction. No significant reversibility identified. 2. Normal wall motion with ejection fraction of greater than 70%%. RISK CATEGORY: Intermediate (1-3%% Annual Mortality Rate) Kvng Florian MD Chest X-Ray 11/25/16 1122 Signed Impressions: Service Date/Time: Friday, November 25, 2016 11:38 - CONCLUSION: Mild scarring and/or atelectasis at the lung bases. There is no evidence of pneumonia. Wilton Huerta MD Objective Remarks GENERAL: WN, WD male appears comfortable SKIN: Warm and dry. HEENT: Pupils equal and round. No nasal drainage. MMM. HEART: RRR no m/r/g. LUNGS: Good air entry but diffuse coarse breath sounds. Speaking in complete sentences. ABDOMEN: Soft, NT, ND. No guarding or rebound. EXTREMITIES: No LE edema. No calf tenderness. NEURO: Awake and alert. A/P Assessment and Plan 75-year-old male with CAD, HTN, DM, and atrial fibrillation admitted for chest pain and shortness of breath found to have a mildly elevated troponin. Cardiology was consulted and troponins trended overnight. Patient to possibly undergo further cardiac evaluation likely with nuclear stress test. Pulmonology also consulted to evaluate respiratory symptoms. Discharge Planning Cleared by cards for d/c home. Likely home after ECHO. Problem List: (1) COPD exacerbation Status: Acute Plan: Patient with longstanding history of tobacco abuse, quit in 2005 after CABG. He has no formal diagnosis of COPD and has never undergone PFTs. CXR on admission showed mild scarring and or atelectasis at the bases. He is maintaining adequate oxygenation on room air. Given increased shortness of breath, cough, and tobacco history, will treat for suspected COPD exacerbation with prednisone 40 mg PO daily and Azithromycin 500 mg PO daily (x 5 days). He would benefit from PFTs as an outpatient once acute symptoms improve. - Supplemental O2 PRN - DuoNeb Q6H - Albuterol nebs Q2H PRN - Mucinex BID - Tessalon PRN cough - Incentive spirometer - Pulm consulted/Dr. Catracho Hayden started patient on antitussive therapy, cont bronchodilator and steroid (2) Elevated troponin Status: Acute Plan: Patient presenting with anterior chest pain and mildly elevated troponin of 0.07. Initial EKG showing atrial fibrillation. Risk factors for ACS: CAD w/ CABG , HTN, DM, h/o tobacco abuse. Serial troponins trended overnight and increased slightly to 0.28 and 0.21 with no significant changes on EKG. - Cardiology consulted, nuclear stress test shows fixed perfusion defect in the inferior wall, characteristics of prior LA, no significant reversibility. Normal wall motion with EF greater than 70%. - 2D echo ordered and pending - Continue ASA (3) Chronic atrial fibrillation Status: Acute Plan: Rate-controlled without use of home BB or CCB. CHADSVASc score of 6 warranting anticoagulation but patient hesitant. - Seen by Dr. Arauz, reports HR controlled - Started patient on eliquis 5 mg PO BID, spoke with family caseworker, should be covered by his medicare, 30 day voucher given (4) FEN/PPX Status: Acute Plan: - Fluids: HLIV - Electrolytes: WNL. Monitor and replete PRN - Nutrition: heart healthy diet - DVT prophylaxis: Heparin 5000 units SQ Q12H - GI prophylaxis: Protonix while on steroids Chronic medical problems: - CAD: Continue home ASA and atorvastatin - Anxiety: Continue home diazepam 5 mg PRN - DM: Hold home glipizide. SSI per protocol - HTN: Continue home amlodipine and lisinopril viniciow Charity Velazquez MD R3 November 27, 2016 09:28
[2016-11-27] MEDS ORDERED: BENZ100 PO (10:21)
[2016-11-27] MEDS ORDERED: PRED20 PO (10:21)
[2016-11-27] MEDS ORDERED: PANT40TA3 PO (10:21)
[2016-11-27] MEDS ORDERED: MUCI600T PO (10:21)
[2016-11-27] MEDS ORDERED: AZIT250T3 PO (10:21)
[2016-11-27] MEDS ORDERED: APIX5TAB PO (10:31)
[2016-11-27] MEDS ORDERED: APIXABAN 5 MG TABLET PO SCH (11:00)
--- NOTE | 2016-11-27 11:56 | EC ---
Study Study Date:11/27/2016 STUDY CONCLUSIONS SUMMARY LEFT VENTRICLE: The cavity size was normal. Wall thickness was normal. Systolic function was normal. The estimated ejection fraction was in the range of 50% to 55%. Wall motion was normal; there were no regional wall motion abnormalities. If LV function is below 40, please consider prescribing an ACEI or ARB or document rationale for non-use. PROCEDURE DATA STUDY STATUS: Elective. Procedure: Transthoracic echocardiography. Image quality was poor. Scanning was performed from the parasternal, apical, and subcostal acoustic windows. Study completion: The patient tolerated the procedure well. Transthoracic echocardiography. M-mode, complete 2D, complete spectral Doppler, and color Doppler. Patient status: Inpatient. CARDIAC ANATOMY LEFT VENTRICLE: The cavity size was normal. Wall thickness was normal. Systolic function was normal. The estimated ejection fraction was in the range of 50% to 55%. Wall motion was normal; there were no regional wall motion abnormalities. AORTIC VALVE: Trileaflet; normal thickness leaflets. Doppler: Transvalvular velocity was within the normal range. There was no stenosis. No regurgitation. AORTA: Aortic root: The aortic root was normal in size. MITRAL VALVE: Structurally normal valve. Doppler: Transvalvular velocity was within the normal range. There was no evidence for stenosis. No regurgitation. LEFT ATRIUM: The atrium was normal in size. RIGHT VENTRICLE: The cavity size was normal. Wall thickness was normal. PULMONIC VALVE: Doppler: Transvalvular velocity was within the normal range. There was no evidence for stenosis. No regurgitation. TRICUSPID VALVE: Structurally normal valve. Doppler: Transvalvular velocity was within the normal range. No regurgitation. PULMONARY ARTERY: The main pulmonary artery was normal-sized. Systolic pressure was within the normal range. RIGHT ATRIUM: The atrium was normal in size. PERICARDIUM: There was no pericardial effusion. SYSTEMIC VEINS: Inferior vena cava: The vessel was normal in size. BASIC MEASUREMENTS ADULT NORMAL Left ventricle LV internal dimension, ED, chordal level, 51 mm 43-52 PLAX LV internal dimension, ES, chordal level, 34.4 mm 23-38 PLAX Fractional shortening, chordal level, PLAX 33 % >29 LV posterior wall thickness, ED 13.1 mm IVS/LVPW ratio, ED 0.78 <1.3 Ventricular septum Septal thickness, ED 10.2 mm Aortic valve Leaflet separation 20 mm 15-26 Right ventricle RV internal dimension, ED, PLAX 32.3 mm 19-38 BASIC MEASUREMENTS ADULT NORMAL Aortic valve Leaflet separation 20 mm 15-26 Aorta Root diameter, ED *41 mm 20-37 Left atrium Anterior-posterior dimension, ES *49 mm 19-40 LA/aortic root ratio 1.2 LEGEND: Mean values are shown as u=mean value. Asterisk (*) jennings values outside specified normal range. Prepared and signed by Edi Rivera [id number]
--- NOTE | 2016-11-27 11:59 | HHI.DCPOC ---
Discharge Care Plan Diagnosis: (1) COPD exacerbation (2) Chronic atrial fibrillation (3) Elevated troponin Goals to Promote Your Health * To prevent worsening of your condition and complications * To maintain your health at the optimal level Directions to Meet Your Goals Take your medications as prescribed Follow your dietary instruction Follow activity as directed Keep your appointments as scheduled Take your immunizations and boosters as scheduled If your symptoms worsen call your PCP, if no PCP go to Urgent Care Center or Emergency Room Smoking is Dangerous to Your Health. Avoid second hand smoke Call the 24-hour hour crisis hotline for domestic abuse at Ralph Marks MD R2 November 27, 2016 11:59
[2016-11-27] MEDS: AZITHROMYCIN 250 MG TAB PO SCH (13:42)
--- NOTE | 2016-11-27 16:11 | HHI.PR ---
Subjective Remarks CONTINUES TO COUGH BUT LESS NO FEVER Objective GENERAL: SKIN: Warm and dry. HEAD: Atraumatic. Normocephalic. EYES: Pupils equal and round. No scleral icterus. No injection or drainage. ENT: No nasal bleeding or discharge. Mucous membranes pink and moist. NECK: Trachea midline. No JVD. CARDIOVASCULAR: Regular rate and rhythm. RESPIRATORY: No accessory muscle use.SCATTERED RONCHI GASTROINTESTINAL: Abdomen soft, non-tender, nondistended. Hepatic and splenic margins not palpable. MUSCULOSKELETAL: Extremities without clubbing, cyanosis, or edema. No obvious deformities. NEUROLOGICAL: Awake and alert. No obvious cranial nerve deficits. Motor grossly within normal limits. Five out of 5 muscle strength in the arms and legs. Normal speech. PSYCHIATRIC: Appropriate mood and affect; insight and judgment normal. Vital Signs Date Time Temp Pulse Resp B/P Pulse Ox O2 Delivery O2 Flow Rate FiO2 11/27/16 15:01 97.8 71 18 131/78 94 11/27/16 15:01 78 11/27/16 14:00 78 11/27/16 13:00 80 11/27/16 12:01 82 11/27/16 11:45 98.8 87 18 91/69 91 11/27/16 11:00 101 11/27/16 10:01 76 11/27/16 09:00 78 11/27/16 08:45 98.0 102 20 140/75 93 11/27/16 08:00 74 11/27/16 07:00 104 11/27/16 06:00 76 11/27/16 05:00 86 11/27/16 04:00 98.3 86 20 136/74 96 11/27/16 04:00 68 11/27/16 03:00 80 11/27/16 02:00 92 11/27/16 01:00 68 11/27/16 00:00 59 11/27/16 00:00 98.1 82 20 138/80 95 11/26/16 23:00 78 11/26/16 22:00 114 11/26/16 21:00 102 11/26/16 20:59 93 21 11/26/16 20:00 83 11/26/16 20:00 98.2 84 20 132/79 95 11/26/16 19:00 86 11/26/16 18:00 100 11/26/16 17:00 107 I/O 11/26/16 11/26/16 11/26/16 11/27/16 11/27/16 11/27/16 07:00 15:00 23:00 07:00 15:00 23:00 Intake Total 240 ml 440 ml Output Total 725 ml Balance 240 ml -285 ml Intake Oral 240 ml 440 ml Output Urine Total 725 ml # Voids 1 Result Diagram: 11/26/16 0511 11/26/16 0511 Assessment and Plan Assessment and Plan COPD PERSISTENT COUGH PLAN BRONCHODILATOR THERAPY INCREASE ACTIVITY Discharge Planning GENERAL: SKIN: Warm and dry. HEAD: Atraumatic. Normocephalic. EYES: Pupils equal and round. No scleral icterus. No injection or drainage. ENT: No nasal bleeding or discharge. Mucous membranes pink and moist. NECK: Trachea midline. No JVD. RESPIRATORY: No accessory muscle use. CARDIOVASCULAR: Regular rate and rhythm. SCATTERED RONCHI. GASTROINTESTINAL: Abdomen soft, non-tender, nondistended. Hepatic and splenic margins not palpable. MUSCULOSKELETAL: Extremities without clubbing, cyanosis, or edema. No obvious deformities. NEUROLOGICAL: Awake and alert. No obvious cranial nerve deficits. Motor grossly within normal limits. Five out of 5 muscle strength in the arms and legs. Normal speech. PSYCHIATRIC: Appropriate mood and affect; insight and judgment normal. Physician Attestation LESS COUGH NO SOB AT REST Catracho Hayden MD November 27, 2016 16:11
--- NOTE | 2016-11-27 16:21 | HHI.PR ---
Subjective Remarks Feeling better Objective Vital Signs Date Time Temp Pulse Resp B/P Pulse Ox O2 Delivery O2 Flow Rate FiO2 11/27/16 15:01 97.8 71 18 131/78 94 11/27/16 15:01 78 11/27/16 14:00 78 11/27/16 13:00 80 11/27/16 12:01 82 11/27/16 11:45 98.8 87 18 91/69 91 11/27/16 11:00 101 11/27/16 10:01 76 11/27/16 09:00 78 11/27/16 08:45 98.0 102 20 140/75 93 11/27/16 08:00 74 11/27/16 07:00 104 11/27/16 06:00 76 11/27/16 05:00 86 11/27/16 04:00 98.3 86 20 136/74 96 11/27/16 04:00 68 11/27/16 03:00 80 11/27/16 02:00 92 11/27/16 01:00 68 11/27/16 00:00 59 11/27/16 00:00 98.1 82 20 138/80 95 11/26/16 23:00 78 11/26/16 22:00 114 11/26/16 21:00 102 11/26/16 20:59 93 21 11/26/16 20:00 83 11/26/16 20:00 98.2 84 20 132/79 95 11/26/16 19:00 86 11/26/16 18:00 100 11/26/16 17:00 107 I/O 11/26/16 11/26/16 11/26/16 11/27/16 11/27/16 11/27/16 07:00 15:00 23:00 07:00 15:00 23:00 Intake Total 240 ml 440 ml Output Total 725 ml Balance 240 ml -285 ml Intake Oral 240 ml 440 ml Output Urine Total 725 ml # Voids 1 Result Diagram: 11/26/16 0511 11/26/16 0511 Imaging Alert, fully oriented Lungs: Ventilated heart: S1, S2 irregular Abdomen: soft, no mass ext: no edema Last Impressions Myocardial Perfusion Scan Nuc Med 11/26/16 0000 Signed Impressions: Service Date/Time: Saturday, November 26, 2016 14:26 - CONCLUSION: 1. Fixed perfusion defect in the inferior wall, best seen on the non-attenuation corrected images. This is characteristic of prior myocardial infarction. No significant reversibility identified. 2. Normal wall motion with ejection fraction of greater than 70%%. RISK CATEGORY: Intermediate (1-3%% Annual Mortality Rate) Kvng Florian MD Chest X-Ray 11/25/16 1122 Signed Impressions: Service Date/Time: Friday, November 25, 2016 11:38 - CONCLUSION: Mild scarring and/or atelectasis at the lung bases. There is no evidence of pneumonia. Wilton Huerta MD Current Medications Medications (Trade) Dose Ordered Sig/Ana Route Start Time Stop Time Status Last Admin (NS Flush) 2 ml UNSCH PRN IV FLUSH 11/25/16 13:45 (NS Flush) 2 ml BID IV FLUSH 11/25/16 21:00 11/27/16 08:43 (Tylenol) 650 mg Q4H PRN PO 11/25/16 13:45 (Zofran Inj) 4 mg Q6H PRN IVP 11/25/16 13:45 (Milk Of Magnesia Liq) 30 ml Q12H PRN PO 11/25/16 13:45 (Narcan Inj) 0.4 mg UNSCH PRN IV 11/25/16 13:45 (Deltasone) 40 mg DAILY PO 11/25/16 14:00 11/27/16 08:42 (Zithromax) 500 mg Q24H PO 11/25/16 14:00 11/30/16 13:59 11/27/16 13:42 (Norvasc) 10 mg DAILY PO 11/26/16 09:00 11/27/16 08:43 (Ecotrin Ec) 81 mg DAILY PO 11/26/16 09:00 11/27/16 08:43 (Lipitor) 40 mg HS PO 11/25/16 21:00 11/26/16 20:57 (Valium) 5 mg HS PRN PO 11/25/16 13:45 11/26/16 00:14 (Colace) 100 mg BID PO 11/25/16 21:00 11/27/16 08:43 (Prinivil) 40 mg DAILY PO 11/26/16 09:00 11/27/16 08:43 (Apresoline) 10 mg Q6H PRN PO 11/25/16 13:45 (D50w (Vial) Inj) 25 ml UNSCH PRN IV PUSH 11/25/16 14:15 (Glucagon Inj) 1 mg UNSCH PRN OTHER 11/25/16 14:15 (Protonix) 40 mg DAILY PO 11/25/16 15:00 11/27/16 08:43 (Tessalon) 200 mg TID PRN PO 11/26/16 03:00 11/27/16 13:42 (Mucinex Er) 600 mg BID PO 11/26/16 09:00 11/27/16 08:43 (Tussionex Liq) 5 ml Q12HR PO 11/26/16 21:00 11/27/16 08:43 (Eliquis) 5 mg BID PO 11/27/16 11:00 11/27/16 11:41 Assessment and Plan Problem List: (1) Chronic atrial fibrillation Status: Acute Plan: HR control (2) COPD exacerbation Status: Acute Plan: Feeling better. SON improve (3) Elevated troponin Status: Acute Plan: Negative nuclear stress study. Ok to Jessica Heath MD November 27, 2016 16:21
== END 2016-11-27 16:35 | disposition home or self-care (01) | DRG 192 ==
LOC: NEPC 11:15 → NEDA 13:00 → NEPHCDU 15:43 → OBSVTOIN 11-26 09:16 → HCIN 11-26 13:15
PROVIDERS: ADMIT Family Medicine; ATTEND Family Medicine
DX: J44.1 Chronic obstructive pulmonary disease with (acute) exacerbation (principal); I48.2 Chronic atrial fibrillation; E11.9 Type 2 diabetes mellitus without complications; I25.10 Atherosclerotic heart disease of native coronary artery without angina pectoris; E78.5 Hyperlipidemia, unspecified; R74.8 Abnormal levels of other serum enzymes; Z86.73 Personal history of transient ischemic attack (TIA), and cerebral infarction without residual deficits; Z87.891 Personal history of nicotine dependence; Z95.1 Presence of aortocoronary bypass graft; I25.2 Old myocardial infarction; Z79.84 Long term (current) use of oral hypoglycemic drugs; Z91.040 Latex allergy status; Z79.82 Long term (current) use of aspirin; F41.9 Anxiety disorder, unspecified; E66.9 Obesity, unspecified; Z68.31 Body mass index [BMI] 31.0-31.9, adult
CPT/HCPCS: 71020; 78452; 80048; 80053; 82550; 82552; 82948; 83735; 83880; 84484; 85025; 85610; 85730; 93005; 93017; 93306; 94150; 94640; 94664; A9502; G0378; J1644; J2060; J2785; J7512